=== PATIENT | female | born 1960 | race Hispanic/Latino ===

== ENCOUNTER 2017-10-31 13:59 | Emergency (ER) | payer OTHER ==
[2017-10-31] MEDS ORDERED: MECLIZINE HCL 12.5 MG TAB ONE (15:50)
[2017-10-31] MEDS ORDERED: ONDANSETRON 4 MG/2 ML VIAL ONE (15:50)
[2017-10-31 15:58] LABS: Absolute Lymphocytes (CBC) 3.2 K/uL (0.7-4.9); Absolute Monocytes 0.7 K/uL (0.1-1.3); Absolute Neutrophil 5.7 K/uL (1.8-8.0); Basophils % 0.9 % (0-1.3); Eosinophils % 1.1 % (0-4.4); Hematocrit 40.5 % (36.0-45.0); Lymphocytes % 32.8 % (15.3-44.8); MCH 32.5 pg (27.0-35.0); MCV 92.3 fL (80-100); MPV 7.5 fL (7.6-11.3); RBC Red Blood Cell Count 4.39 M/uL (3.86-4.86)
[2017-10-31 16:06] LABS: Protime INR 0.97
[2017-10-31 16:17] LABS: ALT/SGPT 24 U/L (12-78); AST/SGOT 17 U/L (15-37); Albumin 3.9 g/dL (3.4-5.0); Alkaline Phosphatase 75 U/L (45-117); BUN Blood Urea Nitrogen 14 mg/dL (7-18); Bicarbonate 29 mmol/L (21-32); Bilirubin Direct < 0.1 mg/dL (0-0.2); Bilirubin Total 0.5 mg/dL (0.2-1.0); CKMB Creatine Kinase MB < 1.0 ng/mL (0.3-3.6); Creatine Phosphokinase 50 U/L (26-192); Glucose Level 100 mg/dL (74-106); Lipase 135 U/L (73-393); Magnesium 2.5 mg/dL (1.8-2.4); NT PRO-BNP 31 pg/mL (<125); Potassium 3.7 mmol/L (3.5-5.1); Protein, Total 8.1 g/dL (6.4-8.2); Sodium Level 139 mmol/L (136-145)
--- NOTE | 2017-10-31 16:17 | RAD REPORT ---
EXAM DESCRIPTION: US - CP - 10/31/2017 4:11 pm CLINICAL HISTORY: CVA, headache, syncope COMPARISON: <Comparisons> TECHNIQUE: Real-time sonographic evaluation of both carotid systems was performed. Doppler interroga tion was performed with waveform tracing bilaterally. FINDINGS: Normal high resistance waveforms are noted in both external carotid arteries. The common c arotid arteries and internal carotid arteries show normal low resistance waveforms. No significant plaque formation is seen. Peak systolic and end diastolic velocity values and the ICA/ CCA ratios are in the non-hemodynamically significant range. Antegrade flow seen in both vertebral arteries. IMPRESSION: No significant atherosclerotic changes noted. No evidence of a hemodynamically significant stenosis.
--- NOTE | 2017-10-31 16:18 | RAD REPORT ---
EXAM DESCRIPTION: RAD - Chest Single View - 10/31/2017 4:13 pm CLINICAL HISTORY: COUGH Chest pain. COMPARISON: CHEST SINGLE VIEW dated 03/02/2007; CHEST PA AND LAT 2 VIEW dated 09/17/2006 FINDINGS: Portable technique limits examination quality. The lungs are grossly clear. The heart is normal in size. No displaced fractures. IMPRESSION: No acute intrathoracic process suspected.
--- NOTE | 2017-10-31 16:55 | RAD REPORT ---
EXAM DESCRIPTION: CT - Head angio - 10/31/2017 4:44 pm CLINICAL HISTORY: dizziness Headache, syncope COMPARISON: <Comparisons> TECHNIQUE: CT head without contrast CT angiography of the head was performed with MIPs. All CT scans are performed using dose optimization technique as appropriate and may include automated exposure control or mA/KV adjustment according to patient size. FINDINGS: No hemorrhage, hydrocephalus or extra-axial fluid collection is seen. No midline shift or areas of brain edema identified. Partial empty sella configuration is suspected. The paranasal sinuse s and mastoids are clear. No evidence of aneurysm is detected. No flow-limiting stenosis or vascular malformation identified. Antegrade flow is seen in the vertebral arteries. The vertebral arteries are codominant. The visualized dural venous sinuses are patent. IMPRESSION: No significant flow abnormality is detected. No acute intracranial abnormality.
--- NOTE | 2017-10-31 17:47 | ER ---
Nurse's Notes [facility] Name: Estrella Wright Age: 57 yrs Sex: Female : 1960 Arrival Date: 10/31/2017 Time: 14:01 Bed 20 Private MD: Diagnosis: Dizziness and giddiness;Vertiginous syndromes in diseases classified elsewhere, unspecified ear;Headache;Weakness Presentation: 10/31 14:53 Presenting complaint: Patient states: "I have a lot of pressure on my head and there is dm5 pain on the base of my skull on both side, nausea, dizzy when I get up or lay down, Legs feel real week. It was worse yesterday and today but it has been going on for 3 weeks. I went to the doctor and they said I have vertigo but I feel like my head is going to explode". Transition of care: patient was not received from another setting of care. No acute neurological deficit is noted. Pre-hospital glucose is not applicable to this patient. Onset of symptoms was October 07, 2017. Risk Assessment: Do you want to hurt yourself or someone else? Patient reports no desire to harm self or others. Initial Sepsis Screen: Does the patient meet any 2 criteria? No. Patient's initial sepsis screen is negative. Does the patient have a suspected source of infection? No. Patient's initial sepsis screen is negative. Care prior to arrival: None. 14:53 Method Of Arrival: Ambulatory 5 14:53 Acuity: CHELSEA 3 dm5 Triage Assessment: 14:56 The onset of the patients symptoms was more than six hours ago. The onset of the dm5 patients symptoms was October 07, 2017 at 12:00. General: Appears in no apparent distress. Behavior is calm, cooperative. Pain: Complains of pain in base of the skull Pain currently is 8 out of 10 on a pain scale. Neuro: Reports dizziness, headache. Respiratory: Airway is patent Respiratory effort is even, unlabored, relaxed, Respiratory pattern is regular. Derm: Skin is pink, warm \\T\\ dry. 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 dm5 Historical: - Allergies: 14:56 No Known Allergies; dm5 - Immunization history:: Adult Immunizations up to date. - Social history:: Smoking status: Patient/guardian denies using tobacco. - Family history:: not pertinent. - Ebola Screening: : Patient negative for fever greater than or equal to 101.5 degrees Fahrenheit, and additional compatible Ebola Virus Disease symptoms. Screenin:15 Abuse screen: Denies threats or abuse. Nutritional screening: No deficits noted. rb1 Tuberculosis screening: No symptoms or risk factors identified. Fall Risk None identified. Assessment: 15:15 General: Appears uncomfortable, Behavior is calm, cooperative, Denies fever. Pain: rb1 Denies pain. Neuro: Level of Consciousness is awake, alert, obeys commands, Oriented to person, place, time, situation, Senior Counsel are equal bilaterally Moves all extremities. Gait is steady, Speech is normal, Facial symmetry appears normal, Pupils are PERRLA. Neuro: Reports weakness generalized. Cardiovascular: Capillary refill < 3 seconds is brisk in bilateral fingers. Respiratory: Airway is patent Respiratory effort is even, unlabored, Respiratory pattern is regular, symmetrical. GI: Reports nausea. : No signs and/or symptoms were reported regarding the genitourinary system. Derm: Skin is pink, warm \\T\\ dry. Musculoskeletal: Range of motion: intact in all extremities. 16:10 Reassessment: Patient appears in no apparent distress at this time. No changes from rb1 previously documented assessment. 17:10 Reassessment: Patient appears in no apparent distress at this time. Patient and/or rb1 family updated on plan of care and expected duration. Pain level reassessed. Patient is alert, oriented x 3, equal unlabored respirations, skin warm/dry/pink. Family at bedside. 18:05 Reassessment: Patient appears in no apparent distress at this time. Patient and/or rb1 family updated on plan of care and expected duration. Pain level reassessed. Patient is alert, oriented x 3, equal unlabored respirations, skin warm/dry/pink. Patient states symptoms have improved. Vital Signs: 14:56 BP 108 / 58; Pulse 86; Resp 20; Temp 99.0; Pulse Ox 98% on R/A; Weight 72.57 kg (R); dm5 Height 4 ft. 11 in. (149.86 cm) (R); Pain 8/10; 16:00 BP 107 / 64; Pulse 70; Resp 19; Pulse Ox 100% on R/A; rb1 17:00 BP 103 / 66; Pulse 70; Resp 17; Pulse Ox 100% on R/A; rb1 18:00 BP 114 / 66; Pulse 71; Resp 18; Pulse Ox 99% on R/A; rb1 18:25 BP 114 / 66; Pulse 73; Resp 16; Pulse Ox 98% on R/A; rb1 14:56 Body Mass Index 32.32 (72.57 kg, 149.86 cm) dm5 ED Course: 14:01 Patient arrived in ED. as 14:56 Triage completed. dm5 14:56 Arm band placed on left wrist. Patient placed in waiting room, in a wheelchair. dm5 15:13 Darryl Horne MD is Attending Physician. erickson 15:15 Patient has correct armband on for positive identification. patient monitor on. Pulse rb1 ox on. NIBP on. 15:16 Andria Covarrubias, RN is Primary Nurse. hb 15:35 Inserted saline lock: 22 gauge in right antecubital area, using aseptic technique. rb1 Blood collected. 16:11 US Carotid Artery Bilateral In Process Unspecified. EDMS 16:13 XRAY Chest (1 view) In Process Unspecified. EDMS 16:44 Head angio In Process Unspecified. EDMS 17:32 EKG done, by ED staff, reviewed by Darryl Horne MD. 3 18:06 Reji Martinez MD is Referral Physician. erickson 18:26 No provider procedures requiring assistance completed. IV discontinued, intact, rb1 bleeding controlled, No redness/swelling at site. Pressure dressing applied. Administered Medications: 16:20 Drug: Zofran 4 mg Route: IVP; Site: right antecubital; rb1 16:45 Follow up: Response: No adverse reaction; Nausea is decreased rb1 16:20 Drug: Meclizine 50 mg Route: PO; rb1 17:00 Follow up: Response: No adverse reaction; Marked relief of symptoms rb1 18:02 Drug: Aspirin 162 mg Route: PO; rb1 18:25 Follow up: Response: No adverse reaction rb1 Outcome: 17:46 Discharge ordered by MD. almendarez 18:26 Discharged to home ambulatory, with family. rb1 18:26 Condition: stable 18:26 Discharge instructions given to patient, Instructed on discharge instructions, follow up and referral plans. medication usage, Demonstrated understanding of instructions, follow-up care, medications, Prescriptions given X 2. 18:27 Patient left the ED. rb1 Signatures: Dispatcher [employer] EDMS Maddy Jackson RN RN Darryl Jean MD MD cha Martinez, Amelia as Barber, Rebecca, RN RN Andria Hayward RN RN hb Herrera, Deanna 3 Corrections: (The following items were deleted from the chart) 17:40 16:15 Reassessment: Patient appears in no apparent distress at this time. No changes rb1 from previously documented assessment. rb1
--- NOTE | 2017-10-31 17:47 | EDPHYS ---
Physician Documentation [facility] Name: Estrella Wright Age: 57 yrs Sex: Female : 1960 Arrival Date: 10/31/2017 Time: 14:01 Bed 20 Private MD: ED Physician Darryl Horne HPI: 10/31 15:24 This 57 yrs old Female presents to ER via Ambulatory with complaints of erickson Dizziness, Weakness - Legs, Nausea. 15:24 The patient presents with dizziness. Onset: The symptoms/episode began/occurred 3 erickson day(s) ago. Context: occurred at home, occurred while the patient was at rest. Modifying factors: The symptoms are alleviated by closing eyes, holding head still, the symptoms are aggravated by movement of head, standing up. Associated signs and symptoms: The patient has no apparent associated signs or symptoms. Severity of symptoms: At their worst the symptoms were mild moderate in the emergency department the symptoms are unchanged. Patient's baseline: Neuro: alert and fully oriented. The patient has experienced similar episodes in the past, several times. 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 - Social history:: Smoking status: Patient/guardian denies using tobacco. - Family history:: not pertinent. - Ebola Screening: : Patient negative for fever greater than or equal to 101.5 degrees Fahrenheit, and additional compatible Ebola Virus Disease symptoms. ROS: 15:24 Constitutional: Negative for fever, chills, and weight loss, Eyes: Negative for injury, erickson pain, redness, and discharge, ENT: Negative for injury, pain, and discharge, Neck: Negative for injury, pain, and swelling, Cardiovascular: Negative for chest pain, palpitations, and edema, Respiratory: Negative for shortness of breath, cough, wheezing, and pleuritic chest pain, Abdomen/GI: Negative for abdominal pain, nausea, vomiting, diarrhea, and constipation, Back: Negative for injury and pain, : Negative for injury, bleeding, discharge, and swelling, MS/Extremity: Negative for injury and deformity, Skin: Negative for injury, rash, and discoloration, Psych: Negative for depression, anxiety, suicide ideation, homicidal ideation, and hallucinations, Allergy/Immunology: Negative for hives, rash, and allergies, Endocrine: Negative for neck swelling, polydipsia, polyuria, polyphagia, and marked weight changes. 15:24 ENT: Positive for tinnitus. 15:24 Neuro: Positive for dizziness. Exam: 15:24 Constitutional: This is a well developed, well nourished patient who is awake, alert, erickson and in no acute distress. Head/Face: Normocephalic, atraumatic. ENT: Nares patent. No nasal discharge, no septal abnormalities noted. Tympanic membranes are normal and external auditory canals are clear. Oropharynx with no redness, swelling, or masses, exudates, or evidence of obstruction, uvula midline. Mucous membranes moist. Neck: Trachea midline, no thyromegaly or masses palpated, and no cervical lymphadenopathy. Supple, full range of motion without nuchal rigidity, or vertebral point tenderness. No Meningismus. Chest/axilla: Normal chest wall appearance and motion. Nontender with no deformity. No lesions are appreciated. Cardiovascular: Regular rate and rhythm with a normal S1 and S2. No gallops, murmurs, or rubs. Normal PMI, no JVD. No pulse deficits. Respiratory: Lungs have equal breath sounds bilaterally, clear to auscultation and percussion. No rales, rhonchi or wheezes noted. No increased work of breathing, no retractions or nasal flaring. Abdomen/GI: Soft, non-tender, with normal bowel sounds. No distension or tympany. No guarding or rebound. No evidence of tenderness throughout. Back: No spinal tenderness. No costovertebral tenderness. Full range of motion. Pelvic Exam: Normal external genitalia. Speculum exam with closed cervical os, no discharge or bleeding noted. Bimanual exam with normal adnexa, no adnexal or cervical motion tenderness. Normal uterus. Female : Normal external genitalia. Neuro: Awake and alert, GCS 15, oriented to person, place, time, and situation. Cranial nerves II-XII grossly intact. Motor strength 5/5 in all extremities. Sensory grossly intact. Cerebellar exam normal. Normal gait. Psych: Awake, alert, with orientation to person, place and time. Behavior, mood, and affect are within normal limits. 15:24 Eyes: Pupils: no acute changes, equal, round, and reactive to light and accomodation, Extraocular movements: intact throughout, Conjunctiva: normal, no acute changes, Corneas: are normal, no acute changes, Sclera: no appreciated abnormality, no acute changes, Anterior chamber: normal, no acute changes, Lids and lashes: appear normal, no acute changes, Nystagmus: nystagmus with fast component noted, bilaterally, vertical nystagmus noted, bilaterally. Vital Signs: 14:56 BP 108 / 58; Pulse 86; Resp 20; Temp 99.0; Pulse Ox 98% on R/A; Weight 72.57 kg (R); dm5 Height 4 ft. 11 in. (149.86 cm) (R); Pain 8/10; 16:00 BP 107 / 64; Pulse 70; Resp 19; Pulse Ox 100% on R/A; rb1 17:00 BP 103 / 66; Pulse 70; Resp 17; Pulse Ox 100% on R/A; rb1 18:00 BP 114 / 66; Pulse 71; Resp 18; Pulse Ox 99% on R/A; rb1 18:25 BP 114 / 66; Pulse 73; Resp 16; Pulse Ox 98% on R/A; rb1 14:56 Body Mass Index 32.32 (72.57 kg, 149.86 cm) dm5 MDM: 15:13 Patient medically screened. [facility] 15:27 Data reviewed: vital signs, nurses notes, lab test result(s), EKG, radiologic studies. [facility] 10/31 15:23 Order name: Basic Metabolic Panel; Complete Time: 17:44 [facility] 10/31 15:23 Order name: CBC with Diff; Complete Time: 17:44 [facility] 10/31 15:23 Order name: Ckmb; Complete Time: 17:44 [facility] 10/31 15:23 Order name: CPK; Complete Time: 17:44 [facility] 10/31 15:23 Order name: LFT's; Complete Time: 17:44 [facility] 10/31 15:23 Order name: Magnesium; Complete Time: 17:44 [facility] 10/31 15:23 Order name: NT PRO-BNP; Complete Time: 17:44 [facility] 10/31 15:23 Order name: PT-INR; Complete Time: 17:44 [facility] 10/31 15:23 Order name: Ptt, Activated; Complete Time: 17:44 [facility] 10/31 15:23 Order name: Troponin (emerg Dept Use Only); Complete Time: 17:44 [facility] 10/31 15:23 Order name: Urine Culture [facility] 10/31 15:23 Order name: Lipase; Complete Time: 17:44 [facility] 10/31 15:46 Order name: TSH [facility] 10/31 15:46 Order name: Thyroid Stimulating Hormone; Complete Time: 18:05 [facility] 10/31 15:23 Order name: XRAY Chest (1 view); Complete Time: 17:44 [facility] 10/31 15:23 Order name: EKG; Complete Time: 15:24 [facility] 10/31 15:23 Order name: Cardiac monitoring [facility] 10/31 15:23 Order name: EKG - Nurse/Tech; Complete Time: 17:33 [facility] 10/31 15:23 Order name: IV Saline Lock; Complete Time: 16:37 [facility] 10/31 15:23 Order name: Labs collected and sent; Complete Time: 16:37 [facility] 10/31 15:23 Order name: O2 Per Protocol; Complete Time: 16:37 [facility] 10/31 15:23 Order name: O2 Sat Monitoring; Complete Time: 16:37 [facility] 10/31 15:23 Order name: US Carotid Artery Bilateral; Complete Time: 17:44 [facility] 10/31 15:25 Order name: Head angio; Complete Time: 17:44 [facility] 10/31 17:04 Order name: Urine Dipstick--Ancillary (enter results) bd Administered Medications: 16:20 Drug: Zofran 4 mg Route: IVP; Site: right antecubital; rb1 16:45 Follow up: Response: No adverse reaction; Nausea is decreased rb1 16:20 Drug: Meclizine 50 mg Route: PO; rb1 17:00 Follow up: Response: No adverse reaction; Marked relief of symptoms rb1 18:02 Drug: Aspirin 162 mg Route: PO; rb1 18:25 Follow up: Response: No adverse reaction rb1 Disposition: 10/31/17 17:46 Discharged to Home. Impression: Dizziness and giddiness, Vertiginous syndromes in diseases classified elsewhere, unspecified ear, Headache, Weakness. - Condition is Stable. - Discharge Instructions: Benign Positional Vertigo, Dizziness, General Headache Without Cause, Weakness, Vertigo, [id number]-[id number], Weakness, Zivb-ln-Auwl, Aspirin and Your Heart, General Headache Without Cause, Tkfc-pm-Fcef, Dizziness, Vuad-gm-Pbtl. - Prescriptions for Meclizine 25 mg Oral Tablet - take 1 tablet by ORAL route every 8 hours As needed; 30 tablet. Zofran 4 mg Oral Tablet - take 1 tablet by ORAL route every 12 hours As needed; 14 tablet. - Medication Reconciliation Form, Thank You Letter, Antibiotic Education, Prescription Opioid Use form. - Follow up: Private Physician; When: 2 - 3 days; Reason: Recheck today's complaints, Continuance of care, Re-evaluation by your physician. Follow up: Reji Martinez MD; When: 2 - 3 days; Reason: Recheck today's complaints, Re-evaluation by your physician. - Problem is new. - Symptoms have improved. Signatures: Dispatcher [employer] EDMS Maddy Jackson RN RN dmDarryl Godwin MD MD cha Barber, Rebecca RN RN rb1 Corrections: (The following items were deleted from the chart) 18:06 17:46 10/31/2017 17:46 Discharged to Home. Impression: Dizziness and giddiness; erickson Vertiginous syndromes in diseases classified elsewhere, unspecified ear; Headache; Weakness. Condition is Stable. Forms are Medication Reconciliation Form, Thank You Letter, Antibiotic Education, Prescription Opioid Use. Follow up: Private Physician; When: 2 - 3 days; Reason: Recheck today's complaints, Continuance of care, Re-evaluation by your physician. Problem is new. Symptoms have improved. erickson 18:27 18:06 10/31/2017 17:46 Discharged to Home. Impression: Dizziness and giddiness; rb1 Vertiginous syndromes in diseases classified elsewhere, unspecified ear; Headache; Weakness. Condition is Stable. Discharge Instructions: Benign Positional Vertigo, Dizziness, General Headache Without Cause, Weakness, Vertigo, Hldx-ql-Fwcd, Weakness, Twon-ns-Gvgt, Aspirin and Your Heart, General Headache Without Cause, Hchm-wk-Exmh, Dizziness, Epum-nr-Zrta. Prescriptions for Meclizine 25 mg Oral Tablet - take 1 tablet by ORAL route every 8 hours As needed; 30 tablet, Zofran 4 mg Oral Tablet - take 1 tablet by ORAL route every 12 hours As needed; 14 tablet. and Forms are Medication Reconciliation Form, Thank You Letter, Antibiotic Education, Prescription Opioid Use. Follow up: Private Physician; When: 2 - 3 days; Reason: Recheck today's complaints, Continuance of care, Re-evaluation by your physician. Follow up: Reji Martinez; When: 2 - 3 days; Reason: Recheck today's complaints, Re-evaluation by your physician. Problem is new. Symptoms have improved. erickson
[2017-10-31] MEDS ORDERED: ASPIRIN EC 81 MG TAB PO ONE (18:06)
[2017-10-31 18:23] LABS: Urine Blood NEGATIVE (NEG); Urine Glucose NEGATIVE (NEG); Urine Protein NEGATIVE (NEG); Urine Specific Gravity 1.025 (1.005-1.030); Urine pH 5.5 (5.0-7.0)
--- NOTE | 2017-11-01 09:42 | EKG ---
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
== END 2017-10-31 18:27 | disposition home or self-care (01) ==
LOC: ER 13:59
DX: R42 Dizziness and giddiness (principal); H81.90 Unspecified disorder of vestibular function, unspecified ear; R53.1 Weakness; R11.0 Nausea; R51 Headache
CPT/HCPCS: 36415; 70496; 71045; 80048; 80076; 81003; 82550; 82553; 83690; 83735; 83880; 84443; 84484; 85025; 85610; 85730; 87086; 87088; 93005; 93880; 96374; 99285; J2405; Q9967